=== PATIENT | female | born 1980 | race Caucasian/White ===

== ENCOUNTER 2017-11-21 13:40 | Observation (INO) ==
[2017-11-21] MEDS ORDERED: Ringers Solution, Lactated 1,000 ML ONE (16:54)
[2017-11-21] MEDS ORDERED: Bupivacaine/EPI 1:200k 0.25%PF 30 ML VIAL ONE (17:03)
--- NOTE | 2017-11-21 17:16 | History & Physical Report ---
Date of Encounter: 11/21/17 Time of Encounter: 17:16 24 Hour HP Update - Instructions Instructions: If the History and Physical is less than 30 days old and was completed prior to A.M. admission and or procedure and has NOT been updated on calendar day of procedure please complete this update prior to performing procedure. - Update Patient reports changes in Medical Condition: No Changes in examination, assessment, or condition: No Changes in Medication: No Preop tests/diagnostics Reviewed: Yes Surgery Remains Indicated: Yes Consent for Planned Operative Procedure(s) Verified: Yes - Pre-Operative Checklist Preoperative Checklist Indicated: No Prophylactic Antibiotic Ordered: No Home Medications Include Beta Jairo: No Beta Jairo Taken Today (Day of Surgery): No Beta Jairo Taken Yesterday (Day Prior to Surgery): No Is VTE Prophylaxis Indicated?: Yes
[2017-11-21] MEDS ORDERED: *HR* Succinylcholine 200 MG/10 ML VIAL IVP ONE (17:27)
[2017-11-21] MEDS ORDERED: Ondansetron 4 MG/2 ML VIAL ONE ×2 (17:27→20:19)
[2017-11-21] MEDS ORDERED: *HR* FentaNYL (PF) 100 MCG/2 ML VIAL ONE (17:27)
[2017-11-21] MEDS ORDERED: *HR* Propofol 200 MG/20 ML VIAL IVP ONE (17:27)
[2017-11-21] MEDS ORDERED: Dexamethasone 4 MG/ML VIAL ONE (17:27)
[2017-11-21] MEDS ORDERED: *HR* Rocuronium Bromide 50 MG/5 ML VIAL ONE (17:27)
[2017-11-21] MEDS ORDERED: Neostigmine Methylsulfate 3 MG/3 ML SYRINGE ONE (17:27)
[2017-11-21] MEDS ORDERED: Lidocaine -MPF 4% 5 ML AMPUL ONE (17:27)
[2017-11-21] MEDS ORDERED: Lidocaine -MPF 2% 2 ML VIAL ONE (17:27)
--- NOTE | 2017-11-21 17:28 | Anesthesia Evaluation PreOp ---
Date of Encounter: 11/21/17 Time of Encounter: 17:25 - Past History Planned Operation: Diagnostic Laparoscopy Cardiac History: Hyperlipidemia Pulmonary History: Former smoker (quit 10 years ago), Asthma [employer] History: Denies Any Significant HX Other Medical History: Denies Any Significant HX Anesthesia History: Past Anesthesia, Problems (PONV) Test: Positive (11/20/2017) Alcohol Use: none Drug use: none Medications and Allergies Ativan 03/23/15 [History] Clindamycin HCl [Cleocin HCl] 300 mg PO QID #40 capsule 03/23/15 [Rx] Lidocaine Viscous Oral Soln 2 ml PO Q1-2H PRN #100 ml 03/23/15 [Rx] Motrin 03/23/15 [History] TraMADol [Ultram] 50 mg PO Q4-6H PRN #15 tablet 03/23/15 [Rx] Azithromycin [Azithromycin 6-Tab Pack] 250 mg PO DAILY #6 tab 08/14/15 [Rx] predniSONE [PredniSONE] 20 mg PO DAILY #24 tablet 11/14/16 [Rx] Albuterol Sulfate [Albuterol Inhaler] 2 puff IH Q4HR #1 hfa.aer.ad 05/06/17 [Rx] Fluticasone Propionate Nasal [Flonase] 120 spray NS DAILY #1 bottle 05/06/17 [Rx ] Guaifenesin/Dm/Pseudoephedrine [Capmist Dm Tablet] 1 each PO BID #20 tablet [Rx] Oseltamivir [Tamiflu] 75 mg PO BID #10 capsule 05/06/17 [Rx] Ibuprofen [Motrin] 600 mg PO Q6HR PRN #60 tab 11/21/17 [Rx] Oxycodone HCl/Acetaminophen [Percocet 5-325 mg Tablet] 1 each PO Q6HR PRN 5 Days #5 tablet 11/21/17 [Rx] 3 Allergy/AdvReac Type Severity Reaction Status Date / Time acetaminophen [From Percocet] Allergy Itching Verified 11/13/17 15:09 codeine Allergy Vomiting Verified 11/13/17 15:09 hydrocodone [From Vicodin] Allergy Vomiting Verified 11/13/17 15:09 meperidine [From Demerol] Allergy Vomiting Verified 11/13/17 15:09 Oxycodone [From Percocet] Allergy Itching Verified 11/13/17 15:09 Penicillins Allergy Difficulty Verified 11/13/17 15:09 Breathing povidone-iodine Allergy Hives Verified 11/13/17 15:09 [From Betadine] soap [From Betadine] Allergy Hives Verified 11/13/17 15:09 - Meds/Allergy Pre-op Review Medications Reviewed: Yes Allergies Reviewed: Yes Beta Blockers on Current Med List: No Anesthesia Results - Labs 11/21/17 17:15 Laboratory Tests 11/13/17 11/16/17 11/20/17 18:13 12:46 17:25 WBC 8.0 Hgb 12.3 Hct 34.3 L Plt Count 186 Sodium 137 Potassium 3.7 BUN 13 Creatinine 0.78 Beta HCG, Quant 656 H Anesthesia Exam Vital Signs/O2 Sat, Most Current Temp Pulse Resp BP Pulse Ox 98.7 F 90 18 125/91 100 11/21/17 15:21 11/21/17 15:21 11/21/17 15:21 11/21/17 15:21 11/21/17 15:21 Height: 4'11''/1.5m Weight: 143 lbs/65.2 kg NPO (# of Hours): 8 Pain Scale: 5 (abdomen) Pain Scale Used: Numeric (1 - 10) - HEENT Pupil (Motor): EOMI Mallampati: II Teeth: Missing, Poor dentition (multiple broken teeth) Oral Opening: Greater than 3 - [employer] LOC: Oriented [employer] Motor: Normal RUE, Normal LUE, Normal RLE, Normal LLE, Normal Face [employer] Sensory: Normal: RLE, LLE, Face, Deficit: RUE, LUE - Cardiac Rhythm: Regular Murmur: None - Pulmonary Breath Sounds: bilateral Clear Respiratory Effort: Symmetrical Anesthesia Assess/Plan ASA Score: 2 Modified [place] Scale for Level of Consciousness: Cooperative, oriented, and tranquil Anesthetic Plan: General Monitoring Plan: Standard Monitors Recovery Plan: PACU
[2017-11-21 17:40] LABS: Basophils % 0.3 %; Eosinophils # 0.1 K/mcL (0.0-0.6); Eosinophils % 0.6 %; Hematocrit 31.6 % (35.3-44.9); Immature Granulocytes % 0.3 % (0-4); Lymphocytes # 1.8 K/mcL (0.6-4.6); Lymphocytes % 22.7 %; Mean Corpuscular HGB Conc 34.8 g/dL (31.6-35.5); Mean Corpuscular Hemoglobin 31.3 pg (28.0-33.3); Mean Platelet Volume 9.5 fL (9.4-12.4); Monocytes # 0.4 K/mcL (0.0-1.3); Monocytes % 4.7 %; Neutrophils # 5.7 K/mcL (1.6-8.9); Platelet Count 190 K/mcL (140-400); Red Blood Count 3.51 M/mcL (3.82-4.97); Red Cell Distribution Width 12.8 % (11.5-14.5); Segmented Neutrophils % 71.4 %
[2017-11-21] MEDS ORDERED: *HR* Labetalol 20 MG/4 ML SYRINGE IVP PRN (18:38)
[2017-11-21] MEDS ORDERED: *HR* HYDROmorphone (PF) 1 MG/ML SYRINGE IVP PRN ×2 (18:38→19:16)
[2017-11-21] MEDS ORDERED: Albuterol 2.5 MG/3 ML NEBULIZER IH ONE (18:38)
[2017-11-21] MEDS ORDERED: *HR* Promethazine 25 MG/ML VIAL IVP PRN (18:38)
[2017-11-21] MEDS ORDERED: Ketorolac 30 MG/ML VIAL ONE (18:44)
--- NOTE | 2017-11-21 19:15 | OB/GYN Procedure Note ---
[employer]: Procedure - Diagnosis Date of procedure: 11/21/17 Pre-op diagnosis: Ruptured ectopic preg Post-op diagnosis: same - Procedure Procedure: BARBRA Shaw Surgeon: Daja Frotune Was there an fire assistant present: No Anesthesia Type: General Estimated blood loss (cc): 50 Fluids: crystalloid Procedure Complications: none Specimens collected: right tube, right ovary and POCs Disposition: same day Findings: right ruptured ectopic encasing right tube and ovary, blood filled cul de sac Narrative: The patient was taken to the OR where general anesthesia was easily obtained. The patient was then prepped and draped in a sterile fashion and placed in dorsal lithotomy position. A sponge on a spongestick was placed into the vagina for uterine manipulation. Attention was then turned to the abdomen where an incision was made with a blade in-between the umbilical folds after 1/4% Marcaine with Epi was injected. With the abdomen tented, a 5mm trocar was advanced into the abdomen with the camera after which pneumoperitoneum was started. After adequate pneumoperiteneum was achieved, the laparoscope camera was reinserted and provided good visualization of the abdomen. The abdomen was explored and the above findings noted. At this point, two other trocars were placed in the right lower quadrant and left lower quadrant under direct visualization, 5mm and 10mm resp. We irrigated and suctioned out the blood in the cul de sac. With the help of the 5 mm Endoseal device, the right fallopian tube and ovary with the conceptus were all removed. The specimens were subsequently removed through the 10mm port and sent to pathology. The pedicles were then inspected for hemostasis, which was noted. Pictures were taken. Kofi was sprayed on the surgical bed. Both ports were removed under direct visualization after the fascia was closed. The laparoscope was removed. The skin incisions were approximated with dermabond and steri strips . The patient tolerated the procedure well and was taken to recovery in stable condition.
[2017-11-21] MEDS ORDERED: *HR* OxyCODONE/APAP 5/325 TABLET PO PRN (19:16)
[2017-11-21] MEDS ORDERED: Scopolamine Patch 1.5 MG PATCH.TD72 TD ONE (20:14)
[2017-11-21] MEDS ORDERED: Dexamethasone 4 MG/ML VIAL IVP ONE (20:16)
[2017-11-21] MEDS ORDERED: Ondansetron 4 MG/2 ML VIAL IVP ONE (20:17)
--- NOTE | 2017-11-21 21:07 | Anesthesia Evaluation Post Op ---
Date of Encounter: 11/21/17 Time of Encounter: 20:55 - Vital Signs Vital Signs: Vital Signs Temp Pulse Resp BP Pulse Ox 11/21/17 20:49 98.7 F 84 16 121/78 100 11/21/17 20:39 78 16 121/77 100 11/21/17 20:29 84 16 129/80 97 11/21/17 20:19 99.3 F 77 16 125/78 99 11/21/17 20:09 75 16 123/77 100 11/21/17 19:59 80 16 121/91 100 11/21/17 19:49 98.8 F 80 16 128/81 100 11/21/17 19:39 85 16 122/72 100 11/21/17 19:29 84 16 143/66 100 11/21/17 19:19 98.1 F 87 14 140/81 100 11/21/17 15:21 98.7 F 90 18 125/91 100 Intake and Output 11/21/17 11/21/17 11/21/17 07:59 15:59 23:59 Output Total 150 / 150 50 / 50 Balance -150 / -150 -50 / -50 Output: Urine 150 / 150 0 / 0 Estimated Blood Loss 50 / 50 Other: Weight 65.2 kg Patient Weight 11/21/17 23:59 Weight 65.2 kg - Lungs Lungs: Clear Ascult./Percussion - Airway Airway: Non-obstructed - Cardiovascular Regular Rate - Mental Status Mental Status: Alert & Oriented, Answers Appropriately - Pain Pain Scale: 3 Pain Scale used: Numeric (1 - 10) - Nausea Vomiting Nausea Vomiting: Responds to treatment with IV Meds - Hydration Hydration: Ice chips, Has not voided - Discharge PostOp Status: Transfer Patient to floor Anes Supervising Prov Stmt: Pt seen/evaluated, VSS and pt has met criteria for discharge to floor. - MD Reji
[2017-11-22 00:08] VITALS: BP 112/72
== END 2017-11-21 23:25 | disposition home or self-care (01) ==
LOC: 1NENUOBS
PROVIDERS: ADMIT Obstetrics & Gynecology; ATTEND Obstetrics & Gynecology